=== PATIENT | male | born 1935 | race Caucasian/White ===

== ENCOUNTER 2016-05-15 03:40 | Emergency (ER) | payer OTHER ==
--- NOTE | 2016-05-15 05:47 | ED NURSING NOTES ---
Clinical Report - Nurses [facility] [address] [place] [address] 05/15/2016 3:40 [id number] Triage time 03:49 May 15 2016. Chief Complaint: FALL OUT OF BED (Pt fell out of bed while trying to sleep). SEPSIS SCREEN: Sepsis Screen: negative. Negative (no infection suspected/documented). Heart rate greater than 90. KOTA COMA SCORE: [place] Coma Scale: 15- eyes open spontaneously (4); best verbal response- oriented x 4 (5); best motor response- obeys commands (6). --04:00 AliM 03:42 05/15/16. BP: 142/90. HR: 102. RR: 18. O2 saturation: 94%. Temp: 97.7 F. Pain level now: 07/26. --04:00 AliM. Weight: 72.5 kg stated. Height/Length: 70 inches Per Patient. BMI: 22.9. --03:53 AliM. Medications Levothyroxine Sodium Oral. --03:45 AliM Omeprazole Oral. --03:45 AliM TERAZOSIN HCl Oral. --03:45 AliM Velafaxine. --03:46 AliM. Allergies Sulfa Antibiotics. --03:46 AliM. History Arrived by EMS. Historian: patient. Unaccompanied. Location of injuries: left frontal area. This occurred just prior to arrival. Occurred at home. ( Pt reports SOB, Left arm pain. RN assessed 2x1mm red area on right forehead.). 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 EMS treatment GREEN END WORKER verbally communicated and report reviewed. See report. Oxygen administered by nasal cannula and at (4 L). BP: 160 / 100. HR: 88. RR: 16. ( BS 161. Pt fell off bed from height of about 3 feet per EMS.). Trauma activation: Pre-hospital notification of patient arrival was received. PAST MEDICAL HX: Tetanus status: unknown. Immunizations: status is unknown. SOCIAL HX: Smoker- current status unknown (Pt denies knowing when he quit smoking but does not currently). No alcohol use or drug use. No infectious disease exposure. ABUSE ASSESSMENT: No report of abuse. FUNCTIONAL ASSESSMENT: Functional assessment: no impairments noted. LEARNING NEEDS ASSESSMENT: The learning needs assessment revealed no barriers. FALL RISK ASSESSMENT: Fall risk assessment completed. Risk factors identified include patient age greater than 65 years and history of fall. Fall interventions initiated. Side rails up x1. Brakes on. Call light in reach of patient. Instructed not to get up without assistance. NUTRITIONAL RISK ASSESSMENT: Nutritional risk assessment notes: Pt reports not eating and drinking regularly. SKIN INTEGRITY ASSESSMENT: Skin integrity risk assessment completed. No skin integrity risk identified. --04:00 AliM ( Pt reports pain between Left should and Left elbow.). --04:03 AliM. PROBLEMS: Hiatal Hernia. Weakness. Atypical Chest Pain. Hypothyroidism. Hypertension. --03:46 AliM. ADDITIONAL SURGERIES: Appendectomy. --03:46 AliM. Interventions ID band on patient. To treatment room. --04:00 AliM. PHYSICAL ASSESSMENT To room via stretcher. GENERAL / NEURO / PSYCH: Alert. Oriented X 4. Appears in no acute distress. HEENT: Left frontal area: (Small abrasion over left eyebrow). RESPIRATORY: Respirations not labored. CVS: Normal heart rate and rhythm. GI / : Abdomen nontender. EXTREMITIES: Limited ROM present (due to ALS). SKIN: Skin is warm and dry. ( Mucous membranes dry.). --04:02 AliM EXTREMITIES: ( Redness noticed on knees bilaterally.). --04:08 AliM. NURSING PROGRESS NOTES Oxygen administered by nasal cannula at 2 liters. Pulse oximeter and NIBP monitor placed on patient; monitor alarms on. Two patient identifiers checked. Call light placed in reach. Side rails up x 2. Bed placed in lowest position. Brakes of bed on. Patient ready for evaluation- ED physician notified. --04:02 AliM 03:59 05/15/2016 Site #1 started via IV in the right hand with an 20g angiocath; two attempts. Blood drawn: rainbow set. Labeled in the presence of the patient and sent to the lab. Saline lock flushed with 10 mL saline (IV done by Reggie AGUAYO). --04:04 AliM ( Oral swabs provided and moisturizer applied to lips). --04:13 Marissa Messina Patient transported to radiology by stretcher with tech. (04:58 May 15 2016). --04:58 AliIsis Patient returned from radiology by stretcher with tech. (05:17 May 15 2016). --05:17 Marissa Messina ( Moisturized pt's mouth with oral swabs.). --05:56 AliIsis 05:54 05/15/16. BP: 149/94. HR: 106. RR: 16. O2 saturation: 97% on nasal cannula at 2 liters/minute. Temp: 97.7 F (oral). Pain level now: 0/10. --05:56 AliM. DISPOSITION / DISCHARGE ( 05/15/16. BP: 149/94. HR: 106. RR: 16. O2 saturation: 97% on nasal cannula at 2 liters/minute. Temp: 97.7 F (oral). Pain level now: 0/10. --05:56 AliIsis.). --06:28 Marissa Messina 06:23 05/15/2016 Site #1 removed upon discharge. Catheter intact. Manual pressure and bandage applied. --06:29 AliIsis Condition at departure: unchanged. Fall risk assessment completed. Risk factors identified include patient age greater than 65 years, history of fall and impairment of mobility. Fall interventions initiated. Patient placed on stretcher. Ability to learn limited by poor comprehension. Discharge instructions provided and reviewed (EMS to provide additional teaching to at home). Written instructions provided in Barbadian. Verbalized understanding (EMS to provide information to at home). The patient was discharged by the physician. He was discharged home and accompanied by Pt unaccompanied but meeting at home. He left the Emergency Department via ambulance and on a stretcher. Driving (EMS). --06:34 AliM ( Chart reviewed by writing RN). --06:38 AliM. Locked/Released at 05/16/2016 8:53 by Salina Wahl R.N.
--- NOTE | 2016-05-15 05:47 | ED CLINICAL REPORT ---
Clinical Report - Physicians/Mid Levels [facility] [address] [place] [address] 05/15/2016 3:40 Patient: MARYAM MEJIA I Time Seen: 03:56 May 15 2016. Arrived- By ambulance. Historian- patient and EMS personnel. CPT: ER phys charges level 4 (#[id number]). HISTORY OF PRESENT ILLNESS Location of injuries- head, neck and left elbow. Chief Complaint: FALL and INJURY TO HEAD, NECK and LEFT UPPER EXTREMITY (ELBOW). The injury occurred just prior to arrival. Occurred at home. Fell (Pt fell out of bed while trying to sleep).). The patient complains of mild pain. The patient sustained a blow to the head and complains of neck pain. No loss of consciousness. Not dazed. REVIEW OF SYSTEMS No numbness, dizziness, chest pain, difficulty breathing or nausea. No abdominal pain, laceration, fever or vomiting. He has had weakness, (chronically). He has had a headache but no pain on weight bearing. All systems otherwise negative, except as recorded above. PAST HISTORY ALS on hospice care after recent discharged from the [place]. Hiatal Hernia. Weakness. Atypical Chest Pain. Hypothyroidism. Hypertension. Appendectomy. Medications: Velafaxine. TERAZOSIN HCl Oral. Omeprazole Oral. Levothyroxine Sodium Oral. Allergies: Sulfa Antibiotics. SOCIAL HISTORY Former smoker. No alcohol use or drug use. ADDITIONAL NOTES The nursing notes have been reviewed. PHYSICAL EXAM Vital Signs: 05/15/2016 03:42 BP: 142/90. HR: 102. RR: 18. O2 saturation: 94%. Temp: 97.7 F. Pain level now: 5/10. Appearance: Alert. No acute distress. Head: Head non-tender. No swelling of head. Left frontal area: mild erythema and small abrasion. No tenderness, swelling, laceration or deformity. Eyes: Pupils equal, round and reactive to light. EOM intact. ENT: No dental injury. Pharynx normal. Neck: Decrease in ROM. Painless ROM. Non-tender. No vertebral tenderness. CVS: Heart sounds normal. Pulses normal. Respiratory: Breath sounds normal. Chest nontender. Abdomen: No visible injury. Soft and nontender. Back: No tenderness. Skin: Skin intact. Skin warm. Normal skin color. Extremities: Left elbow: mild erythema and tenderness located in the area of the olecranon. Neurovascular intact distally. No swelling, laceration, abrasion or ecchymosis. No joint effusion or limitation in ROM. Neuro: Oriented X 3. No motor deficit. No sensory deficit. LABS, X-RAYS, AND EKG X-Rays: C-spine series negative. PROGRESS AND PROCEDURES Course of Care: 05:49 05/15/16. wanted patient brought in after fall for evaluation. Apparently she cancelled the morning RN due to frustration with the service. The patient is on hospice care. Daughter has called and the RN will come out this morning and bring oxygen equipment. Pt is stable and in no distress. Patient/family counseled. Disposition: Discharged. Condition: stable. CLINICAL IMPRESSION Acute cervical strain. Fall from bed. Single superficial abrasion to the head. INSTRUCTIONS (Wear oxygen as needed). Warnings: GENERAL WARNINGS: Return or contact your physician immediately if your condition worsens or changes unexpectedly, if not improving as expected, or if other problems arise. Your Current Medications: CONTINUE TAKING THE FOLLOWING MEDICATIONS: Levothyroxine Sodium Oral. Omeprazole Oral. TERAZOSIN HCl Oral. Velafaxine*. OTC Medications: Acetaminophen (available over the counter): take according to label instructions. Follow-up: Follow up with your doctor in three days. Call for an appointment. Understanding of the discharge instructions verbalized by patient and family. Discharge instructions reviewed with and understanding was verbalized by spouse (Daughter). (Electronically signed by Adrian Su MD 05/18/2016 11:05)
--- NOTE | 2016-05-15 05:47 | ED ORDER SUMMARY ---
..... Patient: MARYAM MEJIA I OrderSheet [facility] VisitID: [id number] [address] [place] [address] 80y, M Registration Date/Time: 05/15/2016 ORDER SHEET Weight: 72.5 kg (stated) Allergies: Sulfa Antibiotics GENERAL ORDERS: Cervical Spine 2 or 3V Urgent (04:26 05/15/2016 Garry DAUGHERTY) (Ack 4:46 Marlenyekimana) (5:15 RFay) MEDICATION ORDERS: IV FLUIDS: ORDER SHEET NOTES: [Electronically signed by Salina Wahl R.N. (08:53 05/16/2016)] [Electronically signed by Adrian Su MD (11:05 05/18/2016)] [Electronically locked/signed by Salina Wahl R.N. (08:53 05/16/2016)]
--- NOTE | 2016-05-15 05:47 | ED CLINICAL REPORT ---
Clinical Report - Physicians/Mid Levels [facility] [address] [place] [address] 05/15/2016 3:40 Patient: MARYAM MEJIA I Time Seen: 03:56 May 15 2016. Arrived- By ambulance. Historian- patient and EMS personnel. CPT: ER phys charges level 4 (#[id number]). HISTORY OF PRESENT ILLNESS Location of injuries- head, neck and left elbow. Chief Complaint: FALL and INJURY TO HEAD, NECK and LEFT UPPER EXTREMITY (ELBOW). The injury occurred just prior to arrival. Occurred at home. Fell (Pt fell out of bed while trying to sleep).). The patient complains of mild pain. The patient sustained a blow to the head and complains of neck pain. No loss of consciousness. Not dazed. REVIEW OF SYSTEMS No numbness, dizziness, chest pain, difficulty breathing or nausea. No abdominal pain, laceration, fever or vomiting. He has had weakness, (chronically). He has had a headache but no pain on weight bearing. All systems otherwise negative, except as recorded above. PAST HISTORY ALS on hospice care after recent discharged from the [place]. Hiatal Hernia. Weakness. Atypical Chest Pain. Hypothyroidism. Hypertension. Appendectomy. Medications: Velafaxine. TERAZOSIN HCl Oral. Omeprazole Oral. Levothyroxine Sodium Oral. Allergies: Sulfa Antibiotics. SOCIAL HISTORY Former smoker. No alcohol use or drug use. ADDITIONAL NOTES The nursing notes have been reviewed. PHYSICAL EXAM Vital Signs: 05/15/2016 03:42 BP: 142/90. HR: 102. RR: 18. O2 saturation: 94%. Temp: 97.7 F. Pain level now: 5/10. Appearance: Alert. No acute distress. Head: Head non-tender. No swelling of head. Left frontal area: mild erythema and small abrasion. No tenderness, swelling, laceration or deformity. Eyes: Pupils equal, round and reactive to light. EOM intact. ENT: No dental injury. Pharynx normal. Neck: Decrease in ROM. Painless ROM. Non-tender. No vertebral tenderness. CVS: Heart sounds normal. Pulses normal. Respiratory: Breath sounds normal. Chest nontender. Abdomen: No visible injury. Soft and nontender. Back: No tenderness. Skin: Skin intact. Skin warm. Normal skin color. Extremities: Left elbow: mild erythema and tenderness located in the area of the olecranon. Neurovascular intact distally. No swelling, laceration, abrasion or ecchymosis. No joint effusion or limitation in ROM. Neuro: Oriented X 3. No motor deficit. No sensory deficit. LABS, X-RAYS, AND EKG X-Rays: C-spine series negative. PROGRESS AND PROCEDURES Course of Care: 05:49 05/15/16. wanted patient brought in after fall for evaluation. Apparently she cancelled the morning RN due to frustration with the service. The patient is on hospice care. Daughter has called and the RN will come out this morning and bring oxygen equipment. Pt is stable and in no distress. Patient/family counseled. Disposition: Discharged. Condition: stable. CLINICAL IMPRESSION Acute cervical strain. Fall from bed. Single superficial abrasion to the head. INSTRUCTIONS (Wear oxygen as needed). Warnings: GENERAL WARNINGS: Return or contact your physician immediately if your condition worsens or changes unexpectedly, if not improving as expected, or if other problems arise. Your Current Medications: CONTINUE TAKING THE FOLLOWING MEDICATIONS: Levothyroxine Sodium Oral. Omeprazole Oral. TERAZOSIN HCl Oral. Velafaxine*. OTC Medications: Acetaminophen (available over the counter): take according to label instructions. Follow-up: Follow up with your doctor in three days. Call for an appointment. Understanding of the discharge instructions verbalized by patient and family. Discharge instructions reviewed with and understanding was verbalized by spouse (Daughter). (Electronically signed by Adrian Su MD 05/18/2016 11:05)
--- NOTE | 2016-05-15 05:47 | ED NURSING NOTES ---
Clinical Report - Nurses [facility] [address] [place] [address] 05/15/2016 3:40 [id number] Triage time 03:49 May 15 2016. Chief Complaint: FALL OUT OF BED (Pt fell out of bed while trying to sleep). SEPSIS SCREEN: Sepsis Screen: negative. Negative (no infection suspected/documented). Heart rate greater than 90. KOTA COMA SCORE: [place] Coma Scale: 15- eyes open spontaneously (4); best verbal response- oriented x 4 (5); best motor response- obeys commands (6). --04:00 AliM 03:42 05/15/16. BP: 142/90. HR: 102. RR: 18. O2 saturation: 94%. Temp: 97.7 F. Pain level now: 07/26. --04:00 AliM. Weight: 72.5 kg stated. Height/Length: 70 inches Per Patient. BMI: 22.9. --03:53 AliM. Medications Levothyroxine Sodium Oral. --03:45 AliM Omeprazole Oral. --03:45 AliM TERAZOSIN HCl Oral. --03:45 AliM Velafaxine. --03:46 AliM. Allergies Sulfa Antibiotics. --03:46 AliM. History Arrived by EMS. Historian: patient. Unaccompanied. Location of injuries: left frontal area. This occurred just prior to arrival. Occurred at home. ( Pt reports SOB, Left arm pain. RN assessed 2x1mm red area on right forehead.). 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 EMS treatment RAIL SPECIALIST verbally communicated and report reviewed. See report. Oxygen administered by nasal cannula and at (4 L). BP: 160 / 100. HR: 88. RR: 16. ( BS 161. Pt fell off bed from height of about 3 feet per EMS.). Trauma activation: Pre-hospital notification of patient arrival was received. PAST MEDICAL HX: Tetanus status: unknown. Immunizations: status is unknown. SOCIAL HX: Smoker- current status unknown (Pt denies knowing when he quit smoking but does not currently). No alcohol use or drug use. No infectious disease exposure. ABUSE ASSESSMENT: No report of abuse. FUNCTIONAL ASSESSMENT: Functional assessment: no impairments noted. LEARNING NEEDS ASSESSMENT: The learning needs assessment revealed no barriers. FALL RISK ASSESSMENT: Fall risk assessment completed. Risk factors identified include patient age greater than 65 years and history of fall. Fall interventions initiated. Side rails up x1. Brakes on. Call light in reach of patient. Instructed not to get up without assistance. NUTRITIONAL RISK ASSESSMENT: Nutritional risk assessment notes: Pt reports not eating and drinking regularly. SKIN INTEGRITY ASSESSMENT: Skin integrity risk assessment completed. No skin integrity risk identified. --04:00 AliM ( Pt reports pain between Left should and Left elbow.). --04:03 AliM. PROBLEMS: Hiatal Hernia. Weakness. Atypical Chest Pain. Hypothyroidism. Hypertension. --03:46 AliM. ADDITIONAL SURGERIES: Appendectomy. --03:46 AliM. Interventions ID band on patient. To treatment room. --04:00 AliM. PHYSICAL ASSESSMENT To room via stretcher. GENERAL / NEURO / PSYCH: Alert. Oriented X 4. Appears in no acute distress. HEENT: Left frontal area: (Small abrasion over left eyebrow). RESPIRATORY: Respirations not labored. CVS: Normal heart rate and rhythm. GI / : Abdomen nontender. EXTREMITIES: Limited ROM present (due to ALS). SKIN: Skin is warm and dry. ( Mucous membranes dry.). --04:02 AliM EXTREMITIES: ( Redness noticed on knees bilaterally.). --04:08 AliM. NURSING PROGRESS NOTES Oxygen administered by nasal cannula at 2 liters. Pulse oximeter and NIBP monitor placed on patient; monitor alarms on. Two patient identifiers checked. Call light placed in reach. Side rails up x 2. Bed placed in lowest position. Brakes of bed on. Patient ready for evaluation- ED physician notified. --04:02 AliM 03:59 05/15/2016 Site #1 started via IV in the right hand with an 20g angiocath; two attempts. Blood drawn: rainbow set. Labeled in the presence of the patient and sent to the lab. Saline lock flushed with 10 mL saline (IV done by Reggie AGUAYO). --04:04 AliM ( Oral swabs provided and moisturizer applied to lips). --04:13 Marissa Messina Patient transported to radiology by stretcher with tech. (04:58 May 15 2016). --04:58 AliIsis Patient returned from radiology by stretcher with tech. (05:17 May 15 2016). --05:17 Marissa Messina ( Moisturized pt's mouth with oral swabs.). --05:56 AliIsis 05:54 05/15/16. BP: 149/94. HR: 106. RR: 16. O2 saturation: 97% on nasal cannula at 2 liters/minute. Temp: 97.7 F (oral). Pain level now: 0/10. --05:56 AliM. DISPOSITION / DISCHARGE ( 05/15/16. BP: 149/94. HR: 106. RR: 16. O2 saturation: 97% on nasal cannula at 2 liters/minute. Temp: 97.7 F (oral). Pain level now: 0/10. --05:56 AliIsis.). --06:28 Marissa Messina 06:23 05/15/2016 Site #1 removed upon discharge. Catheter intact. Manual pressure and bandage applied. --06:29 AliIsis Condition at departure: unchanged. Fall risk assessment completed. Risk factors identified include patient age greater than 65 years, history of fall and impairment of mobility. Fall interventions initiated. Patient placed on stretcher. Ability to learn limited by poor comprehension. Discharge instructions provided and reviewed (EMS to provide additional teaching to at home). Written instructions provided in Salvadorean. Verbalized understanding (EMS to provide information to at home). The patient was discharged by the physician. He was discharged home and accompanied by Pt unaccompanied but meeting at home. He left the Emergency Department via ambulance and on a stretcher. Driving (EMS). --06:34 AliM ( Chart reviewed by writing RN). --06:38 AliM. Locked/Released at 05/16/2016 8:53 by Salina Wahl R.N.
--- NOTE | 2016-05-15 05:47 | ED ORDER SUMMARY ---
..... Patient: MARYAM MEJIA I OrderSheet [facility] VisitID: [id number] [address] [place] [address] 80y, M Registration Date/Time: 05/15/2016 ORDER SHEET Weight: 72.5 kg (stated) Allergies: Sulfa Antibiotics GENERAL ORDERS: Cervical Spine 2 or 3V Urgent (04:26 05/15/2016 Garry DAUGHERTY) (Ack 4:46 Marlenyekimana) (5:15 RFay) MEDICATION ORDERS: IV FLUIDS: ORDER SHEET NOTES: [Electronically signed by Salina Wahl R.N. (08:53 05/16/2016)] [Electronically signed by Adrian Su MD (11:05 05/18/2016)] [Electronically locked/signed by Salina Wahl R.N. (08:53 05/16/2016)]
--- NOTE | 2016-05-15 05:59 | DIAGNOSTIC IMAGING REPORT ---
PROCEDURE: XR CERVICAL SPINE 2 OR 3 VIEW INDICATION: NECK TRAUMA/INJURY TECHNIQUE: Three views (eight images). COMPARISON: None. FINDINGS: There are moderate degenerative changes with disc space narrowing at C3-4 and C5-6. Moderate facet disease. No evidence of an acute process or fracture. IMPRESSION: 1. 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
--- NOTE | 2016-05-18 11:05 | ED DISCHARGE INSTRUCTIONS ---
Patient: MARYAM MEJIA I General Instructions [facility] VisitID: [id number] [place] [address] 80y, M Registration Date/Time: 05/15/2016 Acute cervical strain. Fall from bed. Single superficial abrasion to the head. INSTRUCTIONS (Wear oxygen as needed). Warnings: GENERAL WARNINGS: Return or contact your physician immediately if your condition worsens or changes unexpectedly, if not improving as expected, or if other problems arise. Your Current Medications: CONTINUE TAKING THE FOLLOWING MEDICATIONS: Levothyroxine Sodium Oral. Omeprazole Oral. TERAZOSIN HCl Oral. Velafaxine*. OTC Medications: Acetaminophen (available over the counter): take according to label instructions. Follow-up: Follow up with your doctor in three days. Call for an appointment. Understanding of the discharge instructions verbalized by patient and family. Discharge instructions reviewed with and understanding was verbalized by spouse (Daughter). ADDITIONAL INFORMATION Mechanical Fall You have had a fall today. It appears that the cause is mechanical. That means that you slipped, tripped or lost your balance. If your fall had been due to fainting or a seizure, further tests would be required. Home Care: Rest today and resume your normal activities when you are feeling back to normal. If you were injured during the fall, follow the advice from your doctor regarding care of your injury. You may use acetaminophen (Tylenol) or ibuprofen (Motrin, Advil) to control pain, unless another pain medicine was prescribed. [NOTE: If you have chronic liver or kidney disease or ever had a stomach ulcer or GI bleeding, talk with your doctor before using these medicines.] Fall Prevention: Was there anything that caused your fall that can be fixed, removed, or replaced? Make your home safe by keeping walkways clear of objects you may trip over. Use non-slip pads under rugs. Do not walk in poorly lit areas. Do not stand on chairs or wobbly ladders. Use caution when reaching overhead or looking upward. This position can cause a loss of balance. Be sure your shoes fit properly, have non-slip bottoms and are in good condition. Be cautious when going up and down curbs, and walking on uneven sidewalks. If your balance is poor, consider using a cane or walker. Stay as active as you can. Balance, flexibility, strength, and endurance all come from exercise. They all play a role in preventing falls. Follow Up with your doctor or as advised by our staff. Get Prompt Medical Attention if any of the following occur: Repeated mechanical falls, or unexplained falls Dizziness, fainting or seizure Severe headache Chest pain or shortness of breath Palpitations (very rapid or very slow or irregular heartbeat) Blood in vomit, stools (black or red color) Weakness of an arm or leg or one side of the face Difficulty with speech or vision Abrasions Abrasions are skin scrapes. Their treatment depends on how large and deep the abrasion is. Home Care: If you were given a bandage, change it once a day. If your bandage sticks to the wound, soak it in warm water until it loosens. Wash the area with soap and water to remove all the cream/ointment. You may do this in a sink, under a tub faucet or shower. Rinse off the soap and pat dry with a clean towel. Reapply cream/ointment according to your doctor's instructions. This will prevent infection and help prevent the bandage from sticking. Cover the wound with a fresh non-stick bandage (Telfa). Repeat steps 1 to 4 daily, or as directed by your doctor. If the bandage becomes wet or dirty, change it as soon as possible. You may use acetaminophen (Tylenol) or ibuprofen (Motrin, Advil) to control pain, unless another pain medicine was prescribed. [ NOTE : If you have chronic liver or kidney disease or ever had a stomach ulcer or GI bleeding, talk with your doctor before using these medicines.] Do not use ibuprofen in children under six months of age. Follow Up with your physician or this facility as directed by our staff. Most skin wounds heal within ten days. However, an infection may occur despite proper treatment. Therefore, look for the early signs of infection listed below. Get Prompt Medical Attention if any of the following occur: Increasing pain in the wound Increasing redness or swelling Pus coming from the wound Fever of 100.4F (38C) or higher, or as directed by your healthcare provider Neck Sprain Or Strain A sudden force that causes turning or bending of the neck (such as in a car accident) can stretch or tear muscles (strain) and ligaments (sprain) and cause neck pain. Sometimes neck pain occurs after a simple awkward movement. In either case, muscle spasm is commonly present and contributes to the pain. Unless you had a forceful physical injury (for example, a car accident or fall), X-rays are usually not ordered for the initial evaluation of neck pain. If pain continues and dose not respond to medical treatment, X-rays and other tests may be performed at a later time. Home care The following guidelines will help you care for your injury at home: You may feel more soreness and spasm the first few days after the injury. Reduce your activity level until symptoms begin to improve. When lying down, use a comfortable pillow that supports the head and keeps the spine in a neutral position. The position of the head should not be tilted forward or backward. Use ice packs (ice in a plastic bag, wrapped in a towel) to treat acute pain. Apply for 20 minutes every 24 hours during the first two days. Then, begin local heat (hot shower, hot bath or heating pad) andmassageto reduce muscle spasm. Some patients feel best alternating hot and cold treatments, or just staying with one method only. Do what feels the best to you and gives the most relief. You may use acetaminophen or ibuprofen to control pain, unless another pain medicine was prescribed.If you have chronic liver or kidney disease or ever had a stomach ulcer or GI bleeding, talk with your doctor before using these medicines. Follow-up care Follow up with your physician or this facility if your symptoms do not show signs of improvement. Physical therapy may be needed. If you had X-rays today, they didnt show any broken bones, breaks, or fractures. Sometimes fractures dont show up on the first X-ray. Bruises and sprains can sometimes hurt as much as a fracture. These injuries can take time to heal completely. If your symptoms dont improve or they get worse, talk with your doctor. You may need a repeat X-ray. When to seek medical care Get prompt medical attention if any of the following occur: Pain becomes worse or spreads into your arms Weakness or numbness in one or both arms You have been given the following additional information: Fall, Mechanical Abrasion Neck Sprain/Strain (Electronically signed by Adrian Su MD 05/18/2016 11:05)
--- NOTE | 2016-05-18 11:06 | ED MAR SUMMARY ---
..... Medication Administration Record [facility] [address] [place], [place] [id number] Patient: MARYAM MEJIA I Visit ID: [id number] 80y, M Weight: 72.5 kg Height/Length: 70 in BMI: 22.9 ALLERGIES: Sulfa Antibiotics
--- NOTE | 2016-05-18 11:06 | ED MED RECONCILIATION SUMMARY ---
Patient: MARYAM MEJIA I Medication Reconciliation Report [facility] VisitID: [id number] [address] [place] [address] 80y, M Registration Date/Time: 05/15/2016 Weight: 72.5 kg Height/Length: 70 in. BMI: 22.9 ALLERGIES: Sulfa Antibiotics The patient's Home Medications are listed below: CONTINUE TAKING THE FOLLOWING MEDICATIONS: Levothyroxine Sodium Oral Omeprazole Oral TERAZOSIN HCl Oral Velafaxine The source(s) of the original Home Medication information: Not obtained. The following Medications were given to the patient in the Emergency Department: None. The following Medications were prescribed to the patient: Acetaminophen (available over the counter): take according to label instructions. -- Adrian Su MD
--- NOTE | 2016-05-18 11:06 | ED MED RECONCILIATION SUMMARY ---
Patient: MARYAM MEJIA I Medication Reconciliation Report [facility] VisitID: [id number] [address] [place] [address] 80y, M Registration Date/Time: 05/15/2016 Weight: 72.5 kg Height/Length: 70 in. BMI: 22.9 ALLERGIES: Sulfa Antibiotics The patient's Home Medications are listed below: CONTINUE TAKING THE FOLLOWING MEDICATIONS: Levothyroxine Sodium Oral Omeprazole Oral TERAZOSIN HCl Oral Velafaxine The source(s) of the original Home Medication information: Not obtained. The following Medications were given to the patient in the Emergency Department: None. The following Medications were prescribed to the patient: Acetaminophen (available over the counter): take according to label instructions. -- Adrian Su MD
--- NOTE | 2016-05-18 11:06 | ED MAR SUMMARY ---
..... Medication Administration Record [facility] [address], [place] [id number] Patient: MARYAM MEJIA I Visit ID: [id number] 80y, M Weight: 72.5 kg Height/Length: 70 in BMI: 22.9 ALLERGIES: Sulfa Antibiotics
== END 2016-05-15 06:25 | disposition home or self-care (01) ==
LOC: ED SRH 03:40
DX: S16.1XXA Strain of muscle, fascia and tendon at neck level, initial encounter (principal); S00.9 Superficial injury of unspecified part of head; W06.XXXA Fall from bed, initial encounter; Y93.84 Activity, sleeping; Y92.009 Unspecified place in unspecified non-institutional (private) residence as the place of occurrence of the external cause; Y99.9 Unspecified external cause status; E03.9 Hypothyroidism, unspecified; I10 Essential (primary) hypertension; Z88.2 Allergy status to sulfonamides; Z79.899 Other long term (current) drug therapy